=== PATIENT | male | born 1995 | race African-American/Black ===

== ENCOUNTER 2021-01-27 23:11 | Emergency (ER) | payer SELFPAY ==
[2021-01-28 01:01] LABS: SARS-CoV-2 NAA Rapid Test Not Detected (NotDetected)
== END 2021-01-28 00:06 | disposition home or self-care (01) ==
LOC: CSHERS 23:11
DX: R50.9 Fever, unspecified (principal); J45.909 Unspecified asthma, uncomplicated; Z20.822 Contact with and (suspected) exposure to COVID-19; Z87.891 Personal history of nicotine dependence
CPT/HCPCS: 0240U; 99283

== ENCOUNTER 2022-05-28 11:36 | Emergency (ER) | payer SELFPAY ==
[2022-05-28] MEDS ORDERED: Ibuprofen 200 MG TAB ONE (12:50)
== END 2022-05-28 13:05 | disposition home or self-care (01) ==
LOC: CSHERS 11:36
DX: J18.9 Pneumonia, unspecified organism (principal)
CPT/HCPCS: 71045

== ENCOUNTER 2022-07-25 04:06 | Emergency (ER) | payer SELFPAY | END 2022-07-25 04:40 | disposition home or self-care (01) | LOC: CSHERS 04:06 | DX: J01.90 Acute sinusitis, unspecified (principal); B96.89 Other specified bacterial agents as the cause of diseases classified elsewhere; H10.9 Unspecified conjunctivitis; F17.290 Nicotine dependence, other tobacco product, uncomplicated | CPT/HCPCS: 99283 ==

== ENCOUNTER 2023-08-19 10:55 | Emergency (ER) | payer SELFPAY ==
[2023-08-19] MEDS ORDERED: Ondansetron ODT 4 MG TAB ONE (12:23)
[2023-08-19 13:29] LABS: SARS-CoV-2 NAA Rapid Test Not Detected (NotDetected)
== END 2023-08-19 13:43 | disposition home or self-care (01) ==
LOC: CSHERS 10:55
DX: J20.9 Acute bronchitis, unspecified (principal); R07.9 Chest pain, unspecified; F17.290 Nicotine dependence, other tobacco product, uncomplicated; Z20.822 Contact with and (suspected) exposure to COVID-19
CPT/HCPCS: 71045; 93005; Q0162

== ENCOUNTER 2023-10-31 13:45 | Emergency (ER) | payer SELFPAY ==
[2023-10-31] MEDS ORDERED: Ketorolac Tromethamine 30 MG (1 mL) VIAL ONE (15:21)
== END 2023-10-31 15:51 | disposition home or self-care (01) ==
LOC: CSHERS 13:45
DX: K08.89 Other specified disorders of teeth and supporting structures (principal); F17.290 Nicotine dependence, other tobacco product, uncomplicated
CPT/HCPCS: 96372; 99282; J1885

== ENCOUNTER 2024-07-24 18:20 | Emergency (ER) | payer SELFPAY ==
[2024-07-24 19:34] LABS: ALT (SGPT) 70 U/L (8-55); AST (SGOT) 30 U/L (5-34); Albumin 4.8 g/dL (3.5-5.0); Alkaline Phosphatase 62 U/L (40-110); Anion Gap 15 mmol/L (10-20); BUN (Urea Nitrogen) 15 mg/dL (8.9-20.6); Calc. Creatinine Clearance 0 mL/min (70-130); Calcium 10.4 mg/dL (7.8-10.44); Carbon Dioxide 25 mmol/L (22-29); Chloride 104 mmol/L (98-107); Estimated GFR 76; Globulin 3.3 g/dL (2.4-3.5); Glucose 77 mg/dL (70-105); Potassium 4.3 mmol/L (3.5-5.1); Protein, Total 8.1 g/dL (6.0-8.3); Sodium 140 mmol/L (136-145)
[2024-07-24 19:38] LABS: #Basophils 0.03 10x3/uL (0.0-0.2); #Eosinphils 0.02 10x3/uL (0.0-0.5); #Monocytes 0.82 10x3/uL (0.0-1.1); %Basophils 0.4 % (0.0-2.0); %Eosinophils 0.3 % (0.0-6.0); %Lymphocytes 24.8 % (18.0-47.0); %Monocytes 11.4 % (0.0-10.0); %Neutrophils 62.4 % (40.0-75.0); Hemoglobin 12.9 g/dL (13.5-17.5); Mean Corpuscular HGB CONC 35.8 g/dL (32.0-36.0); Mean Corpuscular Volume 61.3 fL (81.2-95.1); Platelet Count 263 10x3/uL (150-450); RBC Distribution Width 21.6 % (11.5-14.5); Red Blood Cell (RBC) Count 5.87 10x6/uL (4.32-5.72); White Blood Cell (WBC) Count 7.2 10x3/uL (3.5-10.5)
[2024-07-24 19:40] LABS: Troponin I Less than 0.010 ng/mL (< 0.028)
[2024-07-24] MEDS ORDERED: Ketorolac Tromethamine 30 MG (1 mL) VIAL ONE (19:44)
[2024-07-24 20:18] LABS: Anisocytosis MODERATE=16-30 cells (100X) (0-5/hpf); Microcytosis MODERATE=15-30 cells (100X) (0-5/hpf)
[2024-07-24 20:20] LABS: Large Platelets SLIGHT (None Seen); Platelet Adequacy Comment Appears Adequate; Polychromasia SLIGHT = 2-3 cells (100X) (0-2/hpf)
[2024-07-24 22:43] LABS: Reflex for Review?? YES
== END 2024-07-24 20:10 | disposition home or self-care (01) ==
LOC: CSHERS 18:20
DX: R07.89 Other chest pain (principal); F17.290 Nicotine dependence, other tobacco product, uncomplicated
CPT/HCPCS: 71045; 80053; 84484; 85025; 85060; 93005; 96374; J1885

== ENCOUNTER 2025-06-03 10:41 | Emergency (ER) | payer SELFPAY ==
[2025-06-03] MEDS ORDERED: Ondansetron PF 4 MG/2 ML Vial ONE (11:35)
[2025-06-03 12:03] LABS: ALT (SGPT) 97 U/L (Less than 45); AST (SGOT) 57 U/L (11-34); Albumin 4.8 g/dL (3.1-4.5); Alkaline Phosphatase 61 U/L (40-110); Anion Gap 15 mmol/L (10-20); BUN (Urea Nitrogen) 20 mg/dL (8.9-20.6); Bilirubin, Total 1.7 mg/dL (0.3-1.2); Calc. Creatinine Clearance 0 mL/min (70-130); Calcium 9.6 mg/dL (7.8-10.44); Carbon Dioxide 21 mmol/L (22-29); Chloride 103 mmol/L (98-107); Globulin 4.0 g/dL (2.4-3.5); Glucose 99 mg/dL (70-105); Potassium 4.6 mmol/L (3.5-5.1); Sodium 134 mmol/L (136-145)
[2025-06-03 12:08] LABS: #Basophils Less than 0.03 10x3/uL (0.0-0.2); #Eosinophils Less than 0.03 10x3/uL (0.0-0.5); #Monocytes 0.70 10x3/uL (0.0-1.1); #Neutrophils 2.11 10x3/uL (1.5-8.4); %Basophils 0.2 % (0.0-2.0); %Eosinophils 0.5 % (0.0-6.0); %Lymphocytes 34.3 % (18.0-47.0); %Monocytes 16.1 % (0.0-10.0); %Neutrophils 48.4 % (40.0-75.0); Hematocrit 35.7 % (38.8-50.0); Hemoglobin 12.5 g/dL (13.5-17.5); Mean Corpuscular Hemoglobin 21.8 pg (27.0-33.0); Mean Corpuscular Volume 62.2 fL (81.2-95.1); Platelet Count 296 10x3/uL (130-400); Red Blood Cell (RBC) Count 5.74 10x6/uL (4.32-5.72); White Blood Cell (WBC) Count 4.35 10x3/uL (3.5-10.5)
[2025-06-03 12:25] LABS: Anisocytosis MODERATE=16-30 cells (100X) (0-5/hpf); Macrocytosis SLIGHT = 6-15 cells (100X) (0-5/hpf); Microcytosis MODERATE=15-30 cells (100X) (0-5/hpf); Platelet Adequacy Comment Appears Adequate; Polychromasia SLIGHT = 2-3 cells (100X) (0-2/hpf); Target Cells MODERATE= 6-15 cells (100X) (0-1/hpf)
== END 2025-06-03 12:41 | disposition home or self-care (01) ==
LOC: CSHERS 10:41
DX: R11.2 Nausea with vomiting, unspecified (principal); E86.0 Dehydration; R19.7 Diarrhea, unspecified
CPT/HCPCS: 36415; 80053; 85025; 93005; 93010; 96374; J2405

== ENCOUNTER 2025-06-24 15:03 | Emergency (ER) | payer SELFPAY ==
[2025-06-24 16:31] LABS: #Basophils Less than 0.03 10x3/uL (0.0-0.2); #Eosinophils 0.04 10x3/uL (0.0-0.5); #Monocytes 1.16 10x3/uL (0.0-1.1); #Neutrophils 3.93 10x3/uL (1.5-8.4); %Basophils 0.2 % (0.0-2.0); %Eosinophils 0.5 % (0.0-6.0); %Lymphocytes 36.3 % (18.0-47.0); %Monocytes 14.2 % (0.0-10.0); %Neutrophils 48.3 % (40.0-75.0); Hematocrit 44.0 % (38.8-50.0); Hemoglobin 15.2 g/dL (13.5-17.5); Mean Corpuscular Hemoglobin 21.4 pg (27.0-33.0); Mean Corpuscular Volume 62.1 fL (81.2-95.1); Platelet Count 364 10x3/uL (150-450); Red Blood Cell (RBC) Count 7.09 10x6/uL (4.32-5.72); White Blood Cell (WBC) Count 8.15 10x3/uL (3.5-10.5)
[2025-06-24 16:39] LABS: ALT (SGPT) 68 U/L (Less than 45); AST (SGOT) 47 U/L (11-34); Albumin 5.6 g/dL (3.1-4.5); Alkaline Phosphatase 70 U/L (40-110); Anion Gap 20 mmol/L (10-20); BUN (Urea Nitrogen) 49 mg/dL (8.9-20.6); Bilirubin, Total 2.2 mg/dL (0.3-1.2); CK (CPK) 582 U/L (30-200); Calc. Creatinine Clearance 0 mL/min (70-130); Calcium 10.3 mg/dL (7.8-10.44); Carbon Dioxide 21 mmol/L (22-29); Chloride 99 mmol/L (98-107); Globulin 4.2 g/dL (2.4-3.5); Glucose 86 mg/dL (70-105); Magnesium 2.6 mg/dL (1.6-2.6); Potassium 4.8 mmol/L (3.5-5.1); Sodium 135 mmol/L (136-145)
[2025-06-24 18:56] LABS: Glucose, Urine (Dipstick) Normal (Negative); Leukocyte Negative (Negative); Protein, Urine (Dipstick) 15 mg/dl (Neg-Trace); Specific Gravity, Urine 1.025 (1.005-1.030)
[2025-06-24 19:05] LABS: Bacteria/HPF Rare-Few HPF (None Seen); CAUTI Indications for Culture Alt mental st,lethar; RBC/HPF None Seen HPF (0-3); WBC/HPF 0-3 HPF (0-3)
[2025-06-24 19:06] LABS: Urine Culture Reflex No No
== END 2025-06-24 18:38 | disposition home or self-care (01) ==
LOC: CSHERS 15:03
DX: E86.0 Dehydration (principal); F17.290 Nicotine dependence, other tobacco product, uncomplicated
CPT/HCPCS: 80053; 81001; 82550; 83735; 85025; 87428; 93005; 96360; 96361